=== PATIENT | female | born 1955 | race African-American/Black ===

== ENCOUNTER 2019-08-30 22:47 | Emergency (ER) | payer BC, MEDICAID, OTHER ==
--- NOTE | 2019-08-31 00:15 | RADIOLOGY REPORT (SQ) ---
EXAM DESCRIPTION: XR KNEE 1-2 VIEWS COMPLETED DATE/TME: 08/30/2019 00:00 CLINICAL HISTORY: 63 years, Female, bone pain COMPARISON: None. NUMBER OF VIEWS: Two TECHNIQUE: Frontal and lateral radiographs of the left knee were obtained LIMITATIONS: None. FINDINGS: Mild anterior compartment osteoarthrosis. No acute fracture or dislocation. However, there is a large knee joint effusion. Arterial calcinosis is noted. IMPRESSION: No acute osseous anomaly. Mild anterior compartment osteoarthrosis with large knee joint effusion. copyright 2010 [employer]- All Rights Reserved
[2019-08-31] MEDS ORDERED: HYDROCODONE/ACETAMINOPHEN 5-325 MG (6 TAB/ER DISP) PO PRN (02:12)
--- NOTE | 2019-08-31 02:17 | ER Document Report ---
HPI - HPI Time Seen by Provider: 08/31/19 01:44 Pain Level: 5 Context: Patient is a 63-year-old female that comes emergency department for chief complaint of left knee pain. She states that her knee has felt tight, little bit sore, and she had a little bit of pain with movement in addition to some swelling sensation in the back of the knee, however when she was walking down steps at [place] she suddenly felt increased pain and swelling. She reports swelling at and just below the knee now. She can bear weight but it hurts. She has pain with moving the knee as well. She denies history of the same, surgery on the knee, or any other complaints. Past medical history of type 2 diabetes, hypertension, hyperlipidemia. She denies any abnormality with her kidney functioning. - MUSCULOSKELETAL Musculoskeletal: REPORTS: Extremity pain - lt knee Past Medical History - General Information source: Patient - Social History Smoking Status: Never Smoker Frequency of alcohol use: None Drug Abuse: None Lives with: Family Family History: Reviewed & Not Pertinent Patient has suicidal ideation: No Patient has homicidal ideation: No - Past Medical History Cardiac Medical History: Reports: Hx Hypercholesterolemia, Hx Hypertension Endocrine Medical History: Reports: Hx Diabetes Mellitus Type 2 Past Surgical History: Reports: Hx Appendectomy, Hx Hysterectomy Vertical Provider Document - CONSTITUTIONAL General Appearance: WD/WN, No Apparent Distress - INFECTION CONTROL TRAVEL OUTSIDE OF THE [place] IN LAST 30 DAYS: No - HEENT HEENT: Atraumatic, Normocephalic - NECK Neck: Normal Inspection - RESPIRATORY Respiratory: Breath Sounds Normal, No Respiratory Distress - CARDIOVASCULAR Cardiovascular: Regular Rate, Regular Rhythm - GI/ABDOMEN Gastrointestinal: Abdomen Soft, Abdomen Non-Tender - BACK Back: Normal Inspection - MUSCULOSKELETAL/EXTREMETIES Musculoskeletal/Extremeties: MAEW, FROM, Tender - Tender with palpation of the anterior knee generally and slightly over the posterior knee. Range of motion tender but intact, normal skin with no abnormal heat or erythema, normal leg, ankle, distal neurovascular exam, and hip exam. - NEURO Level of Consciousness: Awake, Alert, Appropriate Motor/Sensory: No Motor Deficit, No Sensory Deficit - DERM Integumentary: Warm, Dry, No Rash Course - Re-evaluation Re-evalutation: There is some generalized tenderness and some swelling over the left knee but no abnormal erythema, no reported trauma, patient still has range of motion and inability to stand on the knee. As result I do not suspect septic arthritis. X-ray showing some arthritis, large effusion. Patient's description actually sounds like a possible Mendoza's cyst that ruptured but this was not confirmed. Either way recommendation is elevation, knee immobilization, anti- inflammatories, ice, and orthopedic follow-up. I discussed this with patient in detail. Patient states appreciation and agreement. - Vital Signs Vital signs: Temp Pulse Resp BP Pulse Ox 98.2 F 94 16 192/74 H 98 08/30/19 22:52 08/30/19 22:52 08/30/19 22:52 08/30/19 22:52 08/30/19 22:52 Procedures - Immobilization Left knee Pre-Proc Neuro Vasc Exam: Normal Immobilizer type: Knee immobilizer Performed by: PCT Post-Proc Neuro Vasc Exam: Normal Alignment checked and good: Yes Discharge - Discharge Clinical Impression: Left knee pain Qualifiers: Chronicity: acute Qualified Code(s): M25.562 - Pain in left knee Condition: Stable Disposition: HOME, SELF-CARE Additional Instructions: Your x-ray shows fluid inside the joint and a small amount of arthritis. No other concerning findings. Your exam and description are suggestive of a Mendoza's cyst that popped although this is not definite. Recommendation is icing the knee 3-4 times a day for 10 to 15 minutes, elevating her knee, wearing the knee immobilizer at least for the first few days, using the crutches, take an anti-inflammatory as prescribed, and taking with pain medication only if needed (especially at night to help you sleep). If symptoms continue follow-up with the orthopedics referral for additional management. Come back if you worsen including increased swelling or pain, fever, or any other concerning or worsening symptoms. Prescriptions: Naproxen 375 mg PO BID PRN #14 tablet.dr CHIN Reason: Forms: Elevated Blood Pressure, Return to Work Referrals: ROMANA BENOIT MD [ACTIVE STAFF] - Follow up in 1 week
[2019-08-31 02:53] VITALS: BP 168/72
== END 2019-08-31 02:54 | disposition home or self-care (01) ==
LOC: ER 22:47
DX: M25.562 Pain in left knee (principal); M79.89 Other specified soft tissue disorders; E11.9 Type 2 diabetes mellitus without complications; I10 Essential (primary) hypertension
CPT/HCPCS: 73560; L1830; 99283